=== PATIENT | female | born 1950 | race Caucasian/White ===

== ENCOUNTER 2018-02-13 22:11 | Inpatient (IN) | payer MEDICARE ==
[~2018-02-13] VITALS: Ht 157.5 cm; Wt 49.6 kg
[2018-02-13 22:40] LABS: BASOPHILS # (AUTO) 0.08 x10^3/uL (0-0.1); BASOPHILS % (AUTO) 1 % (0-1); EOSINOPHILS # (AUTO) 0.06 x10^3/uL (0-0.4); EOSINOPHILS % (AUTO) 1 % (1-7); LYMPHOCYTES # (AUTO) 3.56 x10^3/uL (1-3.4); LYMPHOCYTES % (AUTO) 36 % (22-44); MD NO; MEAN CORPUSCULAR HEMOGLOBIN 31.6 pg (27.0-34.8); MEAN CORPUSCULAR HGB CONC 33.2 g/dL (32.4-35.8); MEAN CORPUSCULAR VOLUME 95.3 fL (80-100); MEAN PLATELET VOLUME 7.5 fL (7.4-10.4); MONOCYTES # (AUTO) 0.56 x10^3/uL (0.2-0.8); MONOCYTES % (AUTO) 6 % (2-9); NEUTROPHILS # (AUTO) 5.69 x10^3/uL (1.8-6.8); NEUTROPHILS % (AUTO) 57 % (42-75); PLATELET COUNT 382 x10^3/uL (130-400); RED BLOOD COUNT 4.11 x10^6/uL (3.82-5.3); RED CELL DISTRIBUTION WIDTH 17.5 % (9.6-15.2)
[2018-02-13 22:52] LABS: ALBUMIN 3.4 g/dL (3.4-5.0); ANION GAP 12 mmol/L (5-15); CALCIUM 8.6 mg/dL (8.5-10.1); CHLORIDE 110 mmol/L (98-107); CREATININE 0.94 mg/dL (0.55-1.02)
[2018-02-13 22:56] LABS: TROPONIN I 0.052 ng/mL (0.000-0.045)
[2018-02-13] MEDS ORDERED: ASPIRIN 81 MG TABLET CHEW ONE (23:24)
[2018-02-13] MEDS ORDERED: ASPIRIN 81 MG TABLET CHEW PO ONE (23:30)
[2018-02-14] MEDS ORDERED: ENALAPRILAT 1.25 MG/ML, 2ML IVPush PRN (00:30)
[2018-02-14] MEDS ORDERED: DOCUSATE 100 MG CAPSULE PO PRN (00:30)
[2018-02-14] MEDS ORDERED: ONDANSETRON ODT 4 MG PO PRN (00:30)
[2018-02-14] MEDS ORDERED: LORazepam 1MG TABLET PO PRN ×2 (00:30→16:00)
[2018-02-14] MEDS ORDERED: TEMAZEPAM 15 MG CAPSULE PO PRN (00:30)
[2018-02-14] MEDS ORDERED: ACETAMINOPHEN 325 MG TABLET PO PRN (00:30)
[2018-02-14 00:57] VITALS: BP 114/70
[2018-02-14] MEDS: HEPARIN 5,000 UNITS/ML, 1ML SQ SCH ×4 (01:51→16:09)
[2018-02-14 02:49] VITALS: BP 107/65
[2018-02-14 05:26] LABS: TROPONIN I 0.049 ng/mL (0.000-0.045)
[2018-02-14 06:55] LABS: ALANINE AMINOTRANSFERASE 18 U/L (12-78); ALBUMIN 3.2 g/dL (3.4-5.0); ANION GAP 10 mmol/L (5-15); CALCIUM 8.6 mg/dL (8.5-10.1); CHLORIDE 113 mmol/L (98-107)
[2018-02-14 07:05] LABS: CREATININE 0.98 mg/dL (0.55-1.02)
[2018-02-14 07:06] LABS: ALKALINE PHOSPHATASE 71 U/L (45-117); BILIRUBIN,TOTAL 0.2 mg/dL (0.2-1.0); THYROID STIMULATING HORMONE 0.514 mIU/L (0.358-3.740); TOTAL PROTEIN 6.9 g/dL (6.4-8.2)
[2018-02-14 07:15] VITALS: BP 136/74
[2018-02-14] MEDS ORDERED: REGADENOSON 0.4 MG/5 ML SYRINGE ONE (08:07)
[2018-02-14] MEDS ORDERED: POTASSIUM CHLORIDE 20 MEQ, MAGNESIUM SULFATE 1 GM, MVI ADULT 10 ML, THIAMINE 200 MG, FO... IV SCH (08:30)
[2018-02-14] MEDS ORDERED: THIAMINE 100MG TABLET PO SCH (09:00)
[2018-02-14 11:34] LABS: TROPONIN I 0.057 ng/mL (0.000-0.045)
[2018-02-14 13:15] VITALS: BP 165/73
[2018-02-14] MEDS ORDERED: SODIUM CHLORIDE 0.45% 1,000 ML IV SCH (16:00)
[2018-02-14] MEDS ORDERED: OMNIPAQUE 350 MG/ML, 100ML BOTTLE ONE (17:43)
[2018-02-14 19:11] VITALS: BP 155/80
[2018-02-15] MEDS: HEPARIN 5,000 UNITS/ML, 1ML SQ SCH (00:27)
[2018-02-15 00:49] VITALS: BP 145/83
[2018-02-15 05:12] LABS: AMPHETAMINE SCREEN, URINE Negative (Negative); BARBITURATE SCREEN, URINE Negative (Negative); BENZODIAZEPINE SCREEN, URINE Positive (Negative); CANNABINOID SCREEN, URINE Positive (Negative); COCAINE SCREEN, URINE Negative (Negative); METHADONE SCREEN, URINE Negative (Negative); OPIATE SCREEN, URINE Negative (Negative)
[2018-02-15 05:45] LABS: CHLORIDE 111 mmol/L (98-107)
[2018-02-15 06:11] LABS: ALANINE AMINOTRANSFERASE 14 U/L (12-78); ALBUMIN 2.7 g/dL (3.4-5.0); ALKALINE PHOSPHATASE 63 U/L (45-117); ANION GAP 9 mmol/L (5-15); BILIRUBIN,TOTAL 0.6 mg/dL (0.2-1.0); CALCIUM 8.3 mg/dL (8.5-10.1); CREATININE 0.81 mg/dL (0.55-1.02); TOTAL PROTEIN 6.1 g/dL (6.4-8.2)
[2018-02-15 07:10] VITALS: BP 142/79
[2018-02-15] MEDS ORDERED: NICOTINE 14MG/24 HR PATCH.TD24 TD SCH (09:00)
== END 2018-02-15 08:40 | disposition left against medical advice (07) | DRG 281 ==
LOC: ED 23:59 → EDIP 02-14 00:07 → 5SO 02-14 00:59 → 4EST 02-14 16:04
PROVIDERS: ADMIT Hospitalist; ATTEND Hospitalist
DX: I21.A1 Myocardial infarction type 2 (principal); E87.0 Hyperosmolality and hypernatremia; F10.120 Alcohol abuse with intoxication, uncomplicated; Z53.21 Procedure and treatment not carried out due to patient leaving prior to being seen by health care provider; H91.90 Unspecified hearing loss, unspecified ear; G89.29 Other chronic pain; J43.9 Emphysema, unspecified; R74.0 Nonspecific elevation of levels of transaminase and lactic acid dehydrogenase [LDH]; M79.7 Fibromyalgia; Z71.6 Tobacco abuse counseling; Z72.0 Tobacco use
CPT/HCPCS: 0399T; 36415; 70450; 71045; 71275; 78452; 80048; 80053; 80307; 82040; 84443; 84484; 85025; 93005; 93017; 93306; 99291; G0378; J1644; J2785; J3411; J3475; J3480; Q9967; A9502; C9898